=== PATIENT | female | born 1965 | race Caucasian/White ===

== ENCOUNTER 2018-07-17 17:06 | Emergency (ER) | payer OTHER ==
--- NOTE | 2018-07-17 17:46 | RAD ---
THREE VIEWS OF THE LEFT ANKLE: 07/17/18 HISTORY: Left ankle pain. AP, lateral and oblique views left ankle obtained. Images demonstrate a calcaneal bone spur. No evidence of acute fractures, subluxations or bony lesions seen. IMPRESSION: Unremarkable three views left ankle. POS: [facility]
== END 2018-07-17 18:04 | disposition home or self-care (01) ==
LOC: NAV ERS 17:06
DX: S93.402A Sprain of unspecified ligament of left ankle, initial encounter (principal); F31.9 Bipolar disorder, unspecified; F17.210 Nicotine dependence, cigarettes, uncomplicated; X50.9XXA Other and unspecified overexertion or strenuous movements or postures, initial encounter

== ENCOUNTER 2019-11-15 20:54 | Emergency (ER) | payer OTHER ==
[2019-11-15] MEDS ORDERED: Ketorolac Tromethamine 60 MG/2 ML VIAL ONE (21:48)
[2019-11-15] MEDS ORDERED: Acetaminophen 500 MG TAB ONE (21:48)
== END 2019-11-15 22:10 | disposition home or self-care (01) ==
LOC: NAV ERS 20:54
DX: S00.83XA Contusion of other part of head, initial encounter (principal); I10 Essential (primary) hypertension; M06.9 Rheumatoid arthritis, unspecified; M79.7 Fibromyalgia; F31.9 Bipolar disorder, unspecified; F41.9 Anxiety disorder, unspecified; F17.210 Nicotine dependence, cigarettes, uncomplicated; Y04.8XXA Assault by other bodily force, initial encounter
CPT/HCPCS: 96372; 99283; J1885

== ENCOUNTER 2019-12-30 22:13 | Emergency (ER) | payer OTHER ==
--- NOTE | 2019-12-31 07:42 | RAD ---
RIGHT KNEE 4 VIEWS: Images were initially incorrectly labeled as left. This is a right knee. INDICATION: Right knee pain after a fall. FINDINGS: No fracture identified. Mild degenerative change at the knee with mild spurring from the condyle. T here is prepatellar soft tissue swelling. No significant joint effusion. IMPRESSION: 1. No acute fracture. 2. Prepatellar soft tissue swelling. POS: [facility]
== END 2019-12-30 23:25 | disposition home or self-care (01) ==
LOC: NAV ERS 22:13
DX: S80.01XA Contusion of right knee, initial encounter (principal); W19.XXXA Unspecified fall, initial encounter